=== PATIENT | female | born 1950 | race Hispanic/Latino ===

== ENCOUNTER 2023-09-13 06:15 | Day surgery (SDC) | payer OTHER ==
[~2023-09-13] VITALS: Ht 149.9 cm; Wt 81.6 kg
[2023-09-13] VITALS (11 sets, daily range): BP systolic 125–144; BP diastolic 45–82; PULSE 73–83; RESP 16–28
[~2023-09-13 06:15] MED LIST: FERR-63 PO; FURO40TA5 PO; LACT10SO85 PO; LEVO88CA4 PO; SPIR25TA PO
[2023-09-13] MEDS: 0.9%NACL 1000ML 1,000 ML IV ONE (07:01)
[2023-09-13] MEDS ORDERED: PROPOFOL 10 MG/ML 20ML VIAL IV ONE (08:06)
== END 2023-09-13 09:35 | disposition home or self-care (01) ==
LOC: DAH 06:15
PROVIDERS: ATTEND Internal Medicine Gastroenterology
DX: K74.60 Unspecified cirrhosis of liver (principal); I85.10 Secondary esophageal varices without bleeding; K29.50 Unspecified chronic gastritis without bleeding; R18.8 Other ascites; I10 Essential (primary) hypertension; E03.9 Hypothyroidism, unspecified; Z98.890 Other specified postprocedural states; Z79.899 Other long term (current) drug therapy
CPT/HCPCS: 43239; J7030; J2704; A4620; A4649; A4215 ×2; A4223; A4222; A4221; A4663; A4606; 43255; J3490